=== PATIENT | female | born 1965 | race Caucasian/White ===

== ENCOUNTER 2016-09-05 12:04 | Outpatient (CLI) ==
[2016-09-05 13:30] LABS: ALBUMIN 3.6 g/dL (3.4-5.0); ALBUMIN/GLOBULIN RATIO 0.95; ANION GAP 12.3; BILIRUBIN,TOTAL 0.31 mg/dL (0.00-1.20); BUN/CREATININE RATIO 22.07; CALCIUM 9.1 mg/dL (8.2-10.2); CHOL/HDL RATIO 2.2 (4.5-5.5); CREATININE 0.77 mg/dL (0.60-1.30); POTASSIUM 4.3 mmol/L (3.5-5.10); TOTAL PROTEIN 7.4 g/dL (6.4-8.2)
== END 2016-09-05 12:05 | disposition home or self-care (01) ==
LOC: LAB 12:04
PROVIDERS: ATTEND Nurse Practitioner Family
DX: E78.5 Hyperlipidemia, unspecified (principal)
CPT/HCPCS: 36415; 80053; 80061

== ENCOUNTER 2016-11-19 10:49 | Outpatient (CLI) | payer OTHER | END 2016-11-19 10:50 | disposition home or self-care (01) | LOC: LAB 10:49 | PROVIDERS: ATTEND Nurse Practitioner Family | DX: J02.9 Acute pharyngitis, unspecified (principal); R05 Cough | CPT/HCPCS: 87651; 87880 ==

== ENCOUNTER 2017-02-19 13:32 | Outpatient (CLI) ==
--- NOTE | 2017-02-20 08:21 | MAMMO ---
EXAM: Right digital diagnostic mammogram History: Follow-up right breast mass. Comparison: Right mammogram 08/01/2016 Findings: MLO and CC views of the right breast demonstrate heterogeneously dense breast parenchyma which can obscure small lesions. The 9 o'clock right breast asymmetry has decreased in size. There are no suspicious microcalcifications. Impression: Decreasing size of 9 o'clock indeterminate right breast asymmetry. Recommend further e valuation with ultrasound. BIRADS 0
--- NOTE | 2017-02-20 08:22 | US ---
EXAM: Right breast ultrasound. History: 6-month follow-up right breast cyst. Comparison: Right digital diagnostic mammogram 02/19/2017, right breast ultrasound 08/01/2016 Technique: Multiple sonographic images through the right breast were obtained. Color duplex Dopple r was used to interrogate vascular flow. Findings: At 9 o'clock 6 cm from the nipple there is a 0.5 cm simple cyst which has decreased in si ze compared to the prior study. No suspicious masses. Impression: Benign right breast cyst. Impression: No sonographic evidence of malignancy. Recommend return to routine screening mammograp hy schedule. BIRADS 2
== END 2017-02-19 13:33 | disposition home or self-care (01) ==
LOC: RAD 13:32
PROVIDERS: ATTEND Obstetrics & Gynecology
DX: Z12.31 Encounter for screening mammogram for malignant neoplasm of breast (principal); N63 Unspecified lump in breast

== ENCOUNTER 2017-03-04 12:06 | Outpatient (CLI) ==
[2017-03-04 13:18] LABS: BASOPHILS % (AUTO) 0.5 % (0.0-3.0); EOSINOPHILS # (AUTO) 0.1 K/ul (0.0-0.7); HEMATOCRIT 36.7 % (37.0-47.0); HEMOGLOBIN 12.4 g/dl (12.0-16.0); IMMATURE GRANULOCYTE % (AUTO) 0.2 % (0.0-5.0); LYMPHOCYTES # (AUTO) 1.8 K/uL (0.60-3.4); LYMPHOCYTES % (AUTO) 32.7 (10.0-50.0); MEAN CORPUSCULAR HEMOGLOBIN 29.2 pg (27.0-31.0); MEAN CORPUSCULAR HGB CONC 33.8 (31.8-35.4); MEAN CORPUSCULAR VOLUME 86.6 fl (81.0-99.0); MONOCYTES # (AUTO) 0.4 K/uL (0.4-2.0); MONOCYTES % (AUTO) 6.6 (0-10); NEUTROPHILS # (AUTO) 3.2 K/ul (2.0-6.9); PLATELET COUNT 300 10^3/uL (140-440); RED BLOOD COUNT 4.24 10^6/ul (4.20-5.40); WHITE BLOOD COUNT 5.48 K/ul (4.6-10.2)
[2017-03-04 13:58] LABS: ALBUMIN 3.4 g/dL (3.4-5.0); ALBUMIN/GLOBULIN RATIO 0.85; ANION GAP 13.6; BILIRUBIN,TOTAL 0.38 mg/dL (0.00-1.20); BUN/CREATININE RATIO 17.33; CHOL/HDL RATIO 2.3 (4.5-5.5); CREATININE 0.75 mg/dL (0.60-1.30); POTASSIUM 3.6 mmol/L (3.5-5.10); TOTAL PROTEIN 7.4 g/dL (6.4-8.2)
== END 2017-03-04 12:07 | disposition home or self-care (01) ==
LOC: LAB 12:06
PROVIDERS: ATTEND Nurse Practitioner Family
DX: E03.9 Hypothyroidism, unspecified (principal); E78.2 Mixed hyperlipidemia
CPT/HCPCS: 36415; 80053; 80061; 84443; 85025

== ENCOUNTER 2017-07-23 10:34 | Outpatient (CLI) ==
--- NOTE | 2017-07-24 09:44 | MAMMO ---
EXAM: Bilateral digital screening mammogram (2-D and 3-D) History: Screening Comparison: Bilateral mammogram 07/23/2016 Technique: MLO and CC views of bilateral breasts demonstrate heterogeneously dense breast parenchyma which can obscure small lesions. CAD was reviewed by the radiologist. Tomosynthesis was performed. Asymmetry within the superior left breast posterior depth and seen only on the MLO view. There are no suspicious microcalcifications. Impression: Indeterminate asymmetry within the superior left breast posterior depth and seen only on the MLO view. Recommend further evaluation with spot tomosynthesis, tomosynthesis ML and tomosynthe sis CC view of the left breast. BIRADS 0
== END 2017-07-23 10:35 | disposition home or self-care (01) ==
LOC: RAD 10:34
PROVIDERS: ATTEND Nurse Practitioner Women's Health
DX: Z12.31 Encounter for screening mammogram for malignant neoplasm of breast (principal)
CPT/HCPCS: 77067

== ENCOUNTER 2017-07-31 10:11 | Outpatient (CLI) ==
--- NOTE | 2017-07-31 17:24 | MAMMO ---
EXAM: Left breast digital diagnostic mammogram with tomosynthesis and left breast ultrasound HISTORY: Abnormal mammogram COMPARISON: Mammogram 07/23/2017 FINDINGS: Left breast digital diagnostic mammogram with tomosynthesis was performed with spot compression exagg erated CC and MLO views and lateral view. There is an asymmetry in the left superior breast on MLO v iew and in the left lateral breast on the CC view. Ultrasound left breast was performed . No sonographic correlate identified to the asymmetry on the ML O view. At the 2 o'clock position and 6 cm from the nipple, there is a simple anechoic cyst measurin g 5 x 8 x 8 mm. At the 2 o'clock - 3 o'clock position 5 cm - 6 cm from the nipple, there is a cyst w ith mild internal echoes measuring 2 x 2 x 2 cm. At the 4 o'clock position 7 cm from the nipple, the re is a cyst that may have mild internal echoes measuring 3 x 3 x 4 mm. In the left breast at the 5 o 'clock position 8 cm from the nipple, there is a cyst that may have mild internal echoes measuring 3 x 3 x 3 mm. At the 2 o'clock position 6 cm from the nipple, there is a cyst that has mild internal ec hoes measuring 2 x 4 x 4 mm. IMPRESSION: 1. Several mildly complicated left breast cysts. These findings are probably benign. 2. Left breast mammographic asymmetry without sonographic correlate in this region. This finding is probably benign. 3. Diagnostic mammogram and ultrasound follow-up in 6 months is recommended for reevaluation. BIRADS category III, probably benign.
== END 2017-07-31 10:12 | disposition home or self-care (01) ==
LOC: RAD 10:11
PROVIDERS: ATTEND Nurse Practitioner Women's Health
DX: R92.8 Other abnormal and inconclusive findings on diagnostic imaging of breast (principal)

== ENCOUNTER 2017-09-20 10:20 | Outpatient (CLI) | END 2017-09-20 10:21 | disposition home or self-care (01) | LOC: LAB 10:20 | PROVIDERS: ATTEND Nurse Practitioner Family | DX: E78.2 Mixed hyperlipidemia (principal); E03.9 Hypothyroidism, unspecified | CPT/HCPCS: 36415; 80053; 80061; 84443 ==

== ENCOUNTER 2018-03-17 12:17 | Outpatient (CLI) | END 2018-03-17 12:18 | disposition home or self-care (01) | LOC: RHC-LAB 12:17 | PROVIDERS: ATTEND Nurse Practitioner Family | DX: E03.9 Hypothyroidism, unspecified (principal); E78.2 Mixed hyperlipidemia | CPT/HCPCS: 36415; 80053; 80061; 84443; 85025 ==

== ENCOUNTER 2018-09-16 08:22 | Outpatient (CLI) | END 2018-09-16 08:23 | disposition home or self-care (01) | LOC: RHC-LAB 08:22 | PROVIDERS: ATTEND Nurse Practitioner Family | DX: E78.2 Mixed hyperlipidemia (principal); E03.9 Hypothyroidism, unspecified | CPT/HCPCS: 36415; 80053; 80061; 84443 ==